=== PATIENT | male | born 1955 | race Caucasian/White ===

== ENCOUNTER 2020-11-14 12:22 | Emergency (ER) | payer MEDICARE ==
[2020-11-14 12:33] VITALS: TEMP 98.3
--- NOTE | 2020-11-14 13:14 | ED ---
Extremity Problem HPI - General Chief complaint: Extremity Problem,Nontraumatic Stated complaint: lt leg blood clot Time Seen by Provider: 11/14/20 12:35 Source: patient Mode of arrival: wheelchair Limitations: no limitations - History of Present Illness Initial comments: Patient is a 65-year-old male with history of venous insufficiency, presenting to the emergency Department with complaints of increasing left lower leg pain for the past 2 days. Patient states he was diagnosed with a superficial blood clot in his left upper leg 2 weeks ago. He states he has been doing well with that, doing warm compresses. Patient states over this past weekend he traveled by vehicle up to [place] and ever since then he's been having increase in his left lower leg pain. He states he is having a hard time standing in the left leg secondary to the pain. He denies any fever or chills. Denies any cough, shortness of breath, no chest pain. He has no further complaints at this time. - Related Data Allergies Allergy/AdvReac Type Severity Reaction Status Date / Time No Known Allergies Allergy Verified 11/14/20 12:33 Review of Systems ROS Statement: Those systems with pertinent positive or pertinent negative responses have been documented in the HPI. ROS Other: All systems not noted in ROS Statement are negative. Past Medical History Past Medical History: Hypertension, Thyroid Disorder Additional Past Medical History / Comment(s): [facility] History of Any Multi-Drug Resistant Organisms: None Reported Past Surgical History: Joint Replacement, Orthopedic Surgery Additional Past Surgical History / Comment(s): carpal tunnel, vein stripping,lt shoulder,,rt knee x 4 Past Psychological History: ADD/ADHD, Depression Smoking Status: Former smoker Past Alcohol Use History: None Reported Past Drug Use History: Marijuana General Exam - General Exam Comments Initial Comments: GENERAL: Patient is well-developed and well-nourished. Patient is nontoxic and in no acute distress. HEAD: Atraumatic, normocephalic. EYES: Pupils equal round and reactive to light, extraocular movements intact, sclera anicteric, conjunctiva are normal. Eyelids were unremarkable. ENT: TMs normal, nares patent, oropharynx clear without exudates. Moist mucous membranes. NECK: Normal range of motion, supple without lymphadenopathy or JVD. LUNGS: Unlabored respirations. Breath sounds clear to auscultation bilaterally and equal. No wheezes rales or rhonchi. HEART: Regular rate and rhythm without murmurs, rubs or gallops. ABDOMEN: Soft, nontender, normoactive bowel sounds. No guarding, no rebound. No masses appreciated. : Deferred MUSCULOSKELETAL: Chronic venous insufficiency, edema bilateral lower legs. Neurovascular intact. Normal extremities with adequate strength and normal range of motion. No clubbing or cyanosis. NEUROLOGICAL: Patient is alert and oriented x 3. Motor and sensory are also intact. Cranial nerves II through XII grossly intact. Symmetrical smile. Normal speech, normal gait. PSYCH: Normal mood, normal affect. SKIN: Warm, Dry, normal turgor. Patient has chronic bilateral lower leg venous insufficiency, he does have a painful area consistent with a superficial thrombophlebitis on the left lateral thigh. Limitations: no limitations Course Vital Signs 11/14/20 12:24 Temperature 98.3 F Pulse Rate 66 Respiratory 20 Rate Blood Pressure 199/96 O2 Sat by Pulse 95 Oximetry Medical Decision Making - Medical Decision Making Patient is 65-year-old male with increase in left lower leg pain after driving to [place]. He is worried for DVT. He does have a recently diagnosed superficial thrombophlebitis on the left upper leg. Ultrasound today reveals no evidence of acute DVT, read demonstrates the same superficial thrombophlebitis on the left upper thigh. Patient does have an appointment with his doctor on Saturday. I did recommend continuing with hot packs. Patient is stable for discharge. Patient is in agreement with this plan of care. Return parameters were discussed with the patient and they verbalized understanding. Case discussed with Dr. Ibarra. Disposition Clinical Impression: Superficial thrombophlebitis of left leg Disposition: HOME SELF-CARE Condition: Stable Instructions (If sedation given, give patient instructions): Superficial Thrombophlebitis (ED) Additional Instructions: Please return to the Emergency Department if symptoms worsen or any other concerns. Continue with hot packs to the area as discussed. Tylenol or Motrin for pain. Follow-up with your regular doctor. Is patient prescribed a controlled substance at d/c from ED?: No Referrals: Óscar Vidal MD [Primary Care Provider] - 1-2 days Henry Avila MD [STAFF PHYSICIAN] - 1-2 days
--- NOTE | 2020-11-14 13:45 | US ---
EXAMINATION TYPE: US venous doppler duplex LE LT DATE OF EXAM: 11/14/2020 1:13 PM COMPARISON: NONE CLINICAL HISTORY: 65-year-old male left leg pain increased after road trip. Pt states left lateral th igh pain, pt states recently told he has superficial thrombus SIDE PERFORMED: Left TECHNIQUE: The lower extremity deep venous system is examined utilizing real time linear array sonog verito with graded compression, doppler sonography and color-flow sonography. FINDINGS: VESSELS IMAGED: Common Femoral Vein Deep Femoral Vein Greater Saphenous Vein * Femoral Vein Popliteal Vein Small Saphenous Vein * Proximal Calf Veins (* superficial vessels) Left Leg: Lower femoral vein not visualized due to edema. Otherwise, no evidence for DVT. LEFT later al thigh in area of patient's pain shows superficial thrombophlebitis IMPRESSION: 1. Limited visualization of the lower femoral vein due to edema. Otherwise, no DVT visualized in the left lower extremity imaged from the groin to the upper calf. 2. Exam positive for SVT/superficial thrombophlebitis along the left lateral thigh area of patient's pain.
[2020-11-14] MEDS ORDERED: traMADol 50 MG STARTER PACK 3 TAB BTL PO STA (13:55)
[2020-11-14 14:08] VITALS: BP 170/83; PULSE 88; RESP 16
== END 2020-11-14 14:03 | disposition home or self-care (01) ==
LOC: EC 12:22
DX: I80.02 Phlebitis and thrombophlebitis of superficial vessels of left lower extremity (principal); I87.2 Venous insufficiency (chronic) (peripheral); Z87.891 Personal history of nicotine dependence
CPT/HCPCS: 99283

== ENCOUNTER → 2023-05-28 | Day surgery (SDC) | payer MEDICARE ==
[2023-05-23 11:26] VITALS: BMI 47.9
[~2023-05-28] MED LIST: ALPRAZolam 0.25 MG TAB PO PRN; ALPRAZolam 0.5 MG TAB PO PRN; ASPIRIN 325 MG TAB PO STA; ATORVASTATIN 80 MG TAB PO STA; HEPARIN SODIUM 1,000 UN/ML (10ML VL) IVP ONE; HEPARIN SODIUM 1,000 UN/ML (10ML VL) ONE; HEPARIN SODIUM,PORCINE (1 ML) 2,500 UNIT in SODIUM CHLORIDE 0.9% 250 ML IRRIGATION PRN; HEPARIN SODIUM,PORCINE 10,000 UNIT in SODIUM CHLORIDE 0.9% 1,000 ML IRRIGATION PRN; IOPAMIDOL-370 100ML BTL INJ ONE; LIDOCAINE 1% INJ 10MG/ML (30 ML VIAL-PF) SQ ONE; MIDAZOLAM 2 MG/2 ML VIAL IVP ONE; NITROGLYCERIN SL TABS 0.4 MG TAB SUBLINGUAL PRN; RX INFO: IV CONTRAST WAS GIVEN 1 EACH MISC MISCELLANE PRN; SODIUM CHLORIDE 0.9% 1,000 ML IV SCH; SODIUM CHLORIDE 0.9% 1,000 ML in EMPTY BAG 1 BAG IV SCH; VERAPAMIL 2.5 MG/ML 2 ML AMP ONE; amLODIPine 10 MG TAB PO STA; fentaNYL (PF) 50 MCG/ML 2 ML AMP IVP ONE; fentaNYL (PF) 50 MCG/ML 2 ML AMP ONE; hydrALAZINE HCL 20 MG/ML 1 ML VIAL IVP ONE; hydrALAZINE HCL 20 MG/ML 1 ML VIAL ONE
[2023-05-28 07:35] VITALS: RESP 18; TEMP 97.3
--- NOTE | 2023-05-28 08:01 | P.ANPRN ---
Procedure Note - Anesthesia - Invasive Line Right Arterial Line Time Out Performed: Yes Date of Procedure: 05/28/23 Time of Procedure: 06:55 Location of Patient: PreOp Preparation: Sterile Prep, Sterile Dressing Arterial Line Location: Radial Ultrasound Used: No Image Stored and Saved: No Narrative: Central line placement per sterile protocol utilized.
--- NOTE | 2023-05-28 08:02 | P.ANPRN ---
Procedure Note - Anesthesia - Invasive Line Right Central Line Time Out Performed: Yes Date of Procedure: 05/28/23 Time of Procedure: 07:18 Location of Patient: PreOp Preparation: Sterile Prep, Sterile Dressing Central Line Location: Internal Jugular Ultrasound Used: No Purpose - Visualization and Identification of Vasculature: No Image Stored and Saved: No Narrative: Central line placement per sterile protocol utilized.
[2023-05-28 13:46] VITALS: BP 125/63; PULSE 56
--- NOTE | 2023-05-29 15:29 | CC ---
CARDIAC CATHETERIZATION REPORT INDICATION: Abnormal stress test. PROCEDURE NOTE: After obtaining informed consent, left heart catheterization and coronary angiogram were performed via the right radial artery using standard Lesli catheters. The patient tolerated the procedure well without any obvious immediate complications. The patient had a very tortuous subclavian and we had to use a Glidewire to pass the catheters and wires into the ascending aorta, where they were exchanged. We went through multiple catheter exchanges including a 3.5, 4, 4.5, and ultimately got selective images with 3.5 left Lesli. The patient received verapamil per protocol and heparin per protocol. Total sedation time was 37 minutes. Right radial artery access was obtained using Seldinger technique, and a 6-Romanian sheath was placed, through which the cardiac catheterization was performed. FINDINGS: 1. HEMODYNAMICS: Left ventricular end-diastolic pressure is 24 mm. There is no significant gradient across the aortic valve. 2. LEFT VENTRICULOGRAM: Left ventriculogram is not performed. 3. ANGIOGRAPHIC DATA: a.Right coronary artery: Right coronary artery is a large dominant vessel and is free of significant stenosis. b.Left main coronary artery is a normal-sized vessel and is free of disease. This divides into left anterior descending coronary artery and circumflex coronary artery. c.LAD and its branches, circumflex coronary artery and its branches are free of significant stenosis. CONCLUSIONS: 1. Right dominant circulation. 2. No evidence of significant obstructive CAD in LAD. PLAN: The patient's stress test is a false-positive stress test. We will control his blood pressure optimally and let him go through the back surgery that he was planning on. MMODL / TOMASZN: [id number] /
--- NOTE | 2023-05-29 15:30 | LTR ---
Dear Misti: I performed cardiac catheterization on Chance Menendez. A detailed catheterization note is enclosed for your records. In brief, the cardiac catheterization did not find significant obstructive CAD involving LAD. The plan at this stage is to treat him with optimal medical therapy, blood pressure control, and let him go to surgery for his back. The patient has aortic regurgitation, which I am going to follow down. Thank you for giving us the privilege to participate in the care of this pleasant gentleman. AYESHA / DIOR: [id number] /
== END ==
LOC: CATHCVL 06:45
PROVIDERS: ATTEND Internal Medicine Cardiovascular Disease
DX: R94.39 Abnormal result of other cardiovascular function study (principal); E66.01 Morbid (severe) obesity due to excess calories; E78.5 Hyperlipidemia, unspecified; E07.9 Disorder of thyroid, unspecified; I10 Essential (primary) hypertension; Z79.890 Hormone replacement therapy; Z79.82 Long term (current) use of aspirin; Z79.899 Other long term (current) drug therapy; Z68.43 Body mass index [BMI] 50.0-59.9, adult
CPT/HCPCS: 93458; 36556; J2250; J0360; J2001; J3010; J1644; Q9967

== ENCOUNTER → 2023-11-27 | Outpatient (CLI) | payer MEDICARE ==
--- NOTE | 2023-11-28 09:39 | US ---
EXAMINATION TYPE: US abdomen complete DATE OF EXAM: 11/27/2023 COMPARISON: NONE CLINICAL INDICATION: Male, 68 years old with history of R94.5 ABNORMAL RESULTS OF LIVER FUNCTION STUD IES; Abnormal labs. TECHNIQUE: Multiple sonographic images of the abdomen are obtained. FINDINGS: EXAM MEASUREMENTS: Liver Length: 18.6 cm Gallbladder Wall: 0.2 cm CBD: 0.6 cm Spleen: 13.8 cm Right Kidney: 11.7 x 5.0 x 5.4 cm Left Kidney: 12.3 x 5.3 x 6.2 cm ICE CREAM MIXER NOTES: Very limited due to overlying bowel gas Pancreas: Obscured by bowel gas Liver: Very limited exam, enlarged in size Gallbladder: Suboptimal visualization, no stones or wall thickening seen Evidence for sonographic Dillon's sign: neg CBD: wnl Spleen: Enlarged in size Right Kidney: No hydronephrosis or masses seen, suboptimal visualization Left Kidney: lower cortical anechoic lesion = 1.0 x 0.7 x 0.8 cm, compatible small cortical renal cy st. Upper IVC: wnl Abd Aorta: Proximal and mid portion obscured by overlying bowel gas, limited visualization due to pa tient body habitus IMPRESSION: 1. Hepatomegaly with moderate fatty liver. 2. Mild Splenomegaly. 3. Small cortical left renal cyst
== END | disposition home or self-care (01) ==
LOC: RADUSWWP 08:08
PROVIDERS: ATTEND Family Medicine
DX: R94.5 Abnormal results of liver function studies (principal); R16.0 Hepatomegaly, not elsewhere classified; K76.0 Fatty (change of) liver, not elsewhere classified; R16.1 Splenomegaly, not elsewhere classified; N28.1 Cyst of kidney, acquired
CPT/HCPCS: 76700

== ENCOUNTER 2025-01-18 14:24 | Emergency (ER) | payer MEDICARE ==
[2025-01-18 14:30] VITALS: RESP 18
[2025-01-18 15:09] LABS: Basophils # (A) 0.04 10*3/uL (0.00-0.10); Basophils % (A) 0.7 %; Eosinophils # (A) 0.29 10*3/uL (0.04-0.35); Eosinophils % (A) 5.4 %; HCT 34.7 % (39.6-50.0); HGB 11.5 g/dL (13.0-17.0); Lymphocytes # (A) 1.56 10*3/uL (0.90-5.00); Lymphocytes % (A) 28.9 %; MCH 30.6 pg (27.0-32.0); MCHC 33.1 g/dL (32.0-37.0); MCV 92.3 fL (80.0-97.0); Monocytes # (A) 0.56 10*3/uL (0.20-1.00); Monocytes % (A) 10.4 %; Neutrophils # (A) 2.93 10*3/uL (1.80-7.70); Neutrophils % (A) 54.4 %; Platelet Count 184 10*3/uL (140-440); RBC 3.76 10*6/uL (4.40-5.60); WBC 5.39 10*3/uL (4.50-10.00)
[2025-01-18] MEDS: SODIUM CHLORIDE 0.9% 1,000 ML IV STA (15:09)
[2025-01-18 15:23] LABS: Partial Thromboplastin Time 24.4 sec (22.0-30.0); Prothrombin Time 11.3 sec (10.0-12.5)
[2025-01-18 15:28] LABS: ALT 14 U/L (4-49); AST 22 U/L (17-59); African American GFR (CKD) >90 (>60 ml/min/1.73 sqM); Albumin 4.1 g/dL (3.5-5.0); Alkaline Phosphatase 79 U/L (38-126); Amylase 48 U/L (30-110); Anion Gap 10 mmol/L; Blood Urea Nitrogen 14 mg/dL (9-20); Calcium 9.1 mg/dL (8.4-10.2); Carbon Dioxide 28 mmol/L (22-30); Chloride 102 mmol/L (98-107); Glucose 95 mg/dL (74-99); Lipase 59 U/L (23-300); Non-African American GFR(CKD) >90 (>60 ml/min/1.73 sqM); Potassium 3.6 mmol/L (3.5-5.1); Sodium 140 mmol/L (137-145); Total Bilirubin 0.7 mg/dL (0.2-1.3); Total Protein 7.2 g/dL (6.3-8.2)
--- NOTE | 2025-01-18 17:12 | CT ---
EXAMINATION TYPE: CT abdomen pelvis w con DATE OF EXAM: 01/18/2025 4:42 PM COMPARISON: 11/19/2023 CLINICAL INDICATION: Male, 69 years old with history of abdominal pain. distention. diarrhea; abdomin al pain, distention TECHNIQUE: Axial CT abdomen pelvis w con;Sagittal and coronal reformats were created on a separate w orkstation. Contrast used:100 ml mL of Isovue 300 with IV Contrast, (none if empty) Oral contrast used: without Oral Contrast (none if empty) CT DLP: 2346.9 mGycm, Automated exposure control for dose reduction was used. FINDINGS: LOWER CHEST: Unremarkable ABDOMEN LIVER: Unremarkable GALLBLADDER AND BILE DUCTS: Unremarkable. PANCREAS: Unremarkable. SPLEEN: Unremarkable. ADRENAL GLANDS: Unremarkable. KIDNEYS AND URETERS: No evidence of hydronephrosis or obstructing renal calculus. The ureters are unr emarkable. PELVIS BLADDER: No evidence for wall thickening or mass given limitations of exam. REPRODUCTIVE: Prostate is enlarged in size measuring 4.9 cm in transverse dimension. ABDOMEN & PELVIS STOMACH AND BOWEL: No evidence of bowel obstruction. Gaseous distention of the transverse colon. No o bstructing mass visualized or stricture. PERITONEUM/RETROPERITONEUM: No evidence of pneumoperitoneum or free fluid. VASCULATURE: No evidence of aortic aneurysm. Left retroaortic renal vein. Tortuous vessels along the anterior left thigh. MUSCULOSKELETAL: No acute osseous abnormalities, right sacroiliac joint fixation screw appears intact . Postsurgical changes L4-L5 with laminectomy. Assessment subsequently removed. Mild degeneration changes throughout the spine. LYMPH NODES: No gross evidence for lymphadenopathy. SOFT TISSUE/ABDOMINAL WALL: Unremarkable IMPRESSION: 1. Gaseous dilation of the mid transverse colon without evidence for obstructing mass. Consider ther apeutic Gastrografin small bowel follow-through. 2. Prostatomegaly, correlate with serum PSA. 3. Postsurgical changes spine with laminectomy change. Right sacroiliac joint fixation appears intac t. [facility], , 01/18/2025 5:10 PM
[2025-01-18 18:09] LABS: Appearance,Urine Clear (Clear); Bilirubin,Urine Negative (Negative); Blood,Urine Trace (Negative); Color,Urine Light Yellow; Glucose,Urine (UA) Negative (Negative); Ketones,Urine 1+ (Negative); Leukocyte Esterase,Urine Trace (Negative); Mucus,Urine Rare /hpf; Nitrite,Urine Negative (Negative); Protein,Urine Trace (Negative); RBC,Urine 32 /hpf (0-5); Specific Gravity,Urine 1.034 (1.001-1.035); Urobilinogen,Urine <2.0 mg/dL (<2.0); WBC,Urine 7 /hpf (0-5)
[2025-01-18 20:55] VITALS: BP 122/97; PULSE 84; TEMP 97.9
--- NOTE | 2025-01-18 20:59 | ED ---
General Adult HPI - General Chief complaint: Nausea/Vomiting/Diarrhea Stated complaint: Diarrhea Time Seen by Provider: 01/18/25 14:50 Source: patient, EMS, RN notes reviewed, old records reviewed Mode of arrival: EMS Limitations: no limitations - History of Present Illness Initial comments: Patient is a 69-year-old male who presents emergency department complaining of 4 months of diarrhea and abdominal distention and pain. No change from baseline. Has been dealing with this since August when he was placed on vancomycin for a leg infection that was subsequently amputated. Was at a nursing facility and then finally discharged to home. Home health listen to his abdomen was concern for possibly a blockage. No acute changes. Has been tested multiple times for C. difficile that have all been negative. He has been having nonbloody brown diarrhea for 4 months that is unchanged from baseline. Denies nausea or vomiting. Denies any significant abdominal pain, just the continued distention that has once again been unchanged since early August. Denies any chest pain or shortness of breath. Presents for further evaluation at this time. - Related Data Home Medications Medication Instructions Recorded Confirmed Aspirin EC [Ecotrin Low Dose] 81 mg PO DAILY 11/14/20 01/18/25 Multivit-Min/FA/Lycopen/Lutein 1 tab PO DAILY 11/14/20 01/18/25 [Centrum Silver Tablet] Pravastatin Sodium [Pravachol] 80 mg PO HS 11/14/20 01/18/25 Sertraline [Zoloft] 100 mg PO DAILY 11/14/20 01/18/25 lisinopriL 40 mg PO DAILY 05/23/23 01/18/25 Acetaminophen [Tylenol] 650 mg PO Q4H PRN 01/18/25 01/18/25 Ascorbic Acid [Vitamin C] 500 mg PO DAILY 01/18/25 01/18/25 Ferrous Sulfate [Feosol] 325 mg PO DAILY 01/18/25 01/18/25 Folic Acid 1 mg PO DAILY 01/18/25 01/18/25 Gabapentin 600 mg PO TID 01/18/25 01/18/25 Levothyroxine Sodium [Synthroid] 25 mcg PO DAILY 01/18/25 01/18/25 Levothyroxine Sodium [Synthroid] 200 mcg PO DAILY 01/18/25 01/18/25 Loperamide [Imodium] 2 mg PO Q4H PRN 01/18/25 01/18/25 amLODIPine [Norvasc] 10 mg PO HS 01/18/25 01/18/25 carvediloL [Coreg] 6.25 mg PO BID 01/18/25 01/18/25 hydrALAZINE HCL [Apresoline] 50 mg PO BID 01/18/25 01/18/25 methocarbamoL [Robaxin] 1,000 mg PO Q8H PRN 01/18/25 01/18/25 oxyCODONE HCL [oxyCODONE HCL (IR)] 10 mg PO Q4H PRN 01/18/25 01/18/25 Allergies Allergy/AdvReac Type Severity Reaction Status Date / Time shellfish derived [Shellfish] Allergy Vomiting Verified 01/18/25 18:25 Review of Systems ROS Statement: Those systems with pertinent positive or pertinent negative responses have been documented in the HPI. Review of Systems: CONST: Denies fever EYES: Denies blurry vision ENT: Denies nasal congestion C/V: Denies Chest pain RESP: Denies shortness of breath GI: Patient has chronic abdominal distention, diarrhea : Denies dysuria SKIN: Denies rash. MSK: Denies joint pain. NEURO: Denies headache ROS Other: All systems not noted in ROS Statement are negative. 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 Lymphedema. Uses CPAP. On Minocin for total right knee/infections. Osteoporosis, hypo thyroid, anemia, hx DVTs in legs. Some recent hearing loss. History of Any Multi-Drug Resistant Organisms: None Reported Past Surgical History: Appendectomy, Back Surgery, Joint Replacement, Orthopedic Surgery, Tonsillectomy Additional Past Surgical History / Comment(s): Bilateral carpal tunnel surgeries, bilateral shoulder surgeries, rods in back, sacral fusion, left index finger surgery, right total knee replacement X4, varicose vein "gluing". Right BKA Past Anesthesia/Blood Transfusion Reactions: No Reported Reaction Additional Past Anesthesia/Blood Transfusion Reaction / Comment(s): Pt has never received blood. Past Psychological History: ADD/ADHD, Depression Smoking Status: Never smoker Past Alcohol Use History: None Reported Past Drug Use History: Marijuana - Past Family History Mother Family Medical History: No Reported History General Exam - General Exam Comments Initial Comments: General: Appears in no acute distress. HEAD: Normal with no signs of head trauma. EYES: PERRLA, EOMI, conjunctiva normal, no discharge. ENT: Hearing grossly intact, normal oropharynx. RESPIRATORY: Clear breath sounds bilaterally. No wheezes, rales, or rhonchi. C/V: Regular rate and rhythm. S1 and S2 auscultated, no edema, peripheral pulses 2+ and intact throughout ABD: Abdomen is soft, nontender. Distended in the upper abdomen which patient states is chronic for him. EXT: Right AKA. Stump appears to be healing well. SKIN: No rashes or lesions observed on exposed skin. NEURO: Alert and oriented x 4. No focal deficits. Limitations: no limitations Course Vital Signs 01/18/25 01/18/25 01/18/25 14:27 18:29 20:53 Temperature 65 F L 97.9 F Pulse Rate 66 64 84 Respiratory 18 18 18 Rate Blood Pressure 155/78 184/88 122/97 O2 Sat by Pulse 98 96 95 Oximetry Medical Decision Making - Medical Decision Making Was pt. sent in by a medical professional or institution (JORDYN Miranda, ACCOUNT MANAGER TRAINEE, urgent care, hospital, or detention...) When possible be specific @ -No Did you speak to anyone other than the patient for history (EMS, parent, family, police, friend...)? What history was obtained from this source @ -Patient's is at bedside and provides help with past medical history. Did you review nursing and triage notes (agree or disagree)? Why? @ -I reviewed and agree with nursing and triage notes Were old charts reviewed (outside hosp., previous admission, EMS record, old EKG, old radiological studies, urgent care reports/EKG's, detention records)? Report findings @ -No old charts were reviewed Differential Diagnosis (chest pain, altered mental status, abdominal pain women, abdominal pain men, vaginal bleeding, weakness, fever, dyspnea, syncope, headache, dizziness, GI bleed, back pain, seizure, CVA, palpatations, mental health, musculoskeletal)? @ -Differential Abdominal Pain Men: Appendicitis, cholecystitis, diverticulosis, ischemic bowel, pancreatitis, hepatitis, UTI, gastroenteritis, AAA, incarcerated hernia, bowel obstruction, constipation, inflammatory bowel, hepatitis, peptic ulcer disease, splenic infarction, perforated viscus, testicular torsion, this is not meant to be an all-inclusive list EKG interpreted by me (3pts min.). @ -None done X-rays interpreted by me (1pt min.). @ -Gastrografin small bowel follow-through abdominal series x-rays interpreted by Dr. Wong over the phone self and showed satisfactory passage of the contrast material through the bowels. Overall normal exam, other than the previous finding of the transverse colonic air. CT interpreted by me (1pt min.). @ -CT abdomen and pelvis reveals gaseous distention of the transverse colon. No obvious evidence of obstructing mass. Recommend Gastrografin small bowel follow-through study. U/S interpreted by me (1pt. min.). @ -None done What testing was considered but not performed or refused? (CT, X-rays, U/S, labs)? Why? @ -None What meds were considered but not given or refused? Why? @ -None Did you discuss the management of the patient with other professionals (professionals i.e. , PA, ACCOUNT MANAGER TRAINEE, lab, RT, psych nurse, social services designee, product design manager, teacher, customs officer, case manager specialist)? Give summary @ -Discussed the case with on-call surgeon Dr. Fletcher who was in agreement with plan for the Gastrografin study. Discussed with the radiology on-call, Dr. Wong who interpreted the CT and was also in agreement with this plan and he will interpret the results of the Gastrografin follow-through study. He did communicate to me the results of this and stated the gaseous distention of the transverse colon is likely positional as patient is chronically of laying flat on his back. Recommended changing position. Was smoking cessation discussed for >3mins.? @ -No Was critical care preformed (if so, how long)? @ -No Were there social determinants of health that impacted care today? How? (Homelessness, low income, unemployed, alcoholism, drug addiction, transportation, low edu. Level, literacy, decrease access to med. care, alf, rehab)? @ -No Was there de-escalation of care discussed even if they declined (Discuss DNR or withdrawal of care, Hospice)? DNR status @ -No What co-morbidities impacted this encounter? (DM, HTN, Smoking, COPD, CAD, Cancer, CVA, ARF, Chemo, Hep., AIDS, mental health diagnosis, sleep apnea, morbid obesity)? @ -Chronic gaseous distention of the abdomen. Was patient admitted / discharged? Hospital course, mention meds given and route, prescriptions, significant lab abnormalities, going to OR and other pertinent info. @ -Patient presents for evaluation prior possible bowel obstruction. Has no acute symptoms but has chronic 4 months of abdominal distention that is unchanged from baseline as well as nonbloody diarrhea that is unchanged from baseline. Sent by his home care nurse. Symptoms seem chronic and I did discuss this with the patient as well as his and they were in agreement. Unlikely to find acute etiology but we will obtain abdominal labs as well as CT. They were in agreement this plan. Patient is symptomatic treated with IV fluids. Is not in any pain. Laboratory studies returned unremarkable. CT abdomen pelvis reveals gaseous distention of the transverse colon without any obvious blockage or ileus. Radiologist, Dr. Wong recommends a small bowel follow-through with Gastrografin. I discussed the case with the on-call surgeon, Dr. Fletcher who was also in agreement with this plan. This is to rule out any other obvious obstructive process and to ensure that the contrast does pass through the air- filled bowel. It could improve some of his symptoms and air distention as well. Air distention could also be secondary to chronic positioning as he is always flat on his back. Patient was in agreement this plan. Frequent reevaluations occurred. Patient was small bowel follow-through was unremarkable, as patient was having adequate passage of the contrast material through his bowels. I updated the patient. He is actively having a bowel movement which is chronic for him. C. difficile was ordered however patient has been tested numerous times for C. difficile and has been negative. He expressed understanding he was to be discharged home back to his home at this time. He will be aided with ambulance transfer for home. Recommended follow-up with gastroenterology as well as surgery. They did request follow-up with Dr. Carrion. I instructed the patient to follow up with their PCP in the next 1-3 days. I explained that the patient should return to the emergency department if they experience any worsening symptoms. Strict return precautions were discussed with the patient. The patient expressed understanding of these instructions. I answered all questions that the patient had. The patient was discharged home in good condition with their prescriptions and follow up information. Undiagnosed new problem with uncertain prognosis? @ -No Drug Therapy requiring intensive monitoring for toxicity (Heparin, Nitro, Insulin, Cardizem)? @ -No Were any procedures done? @ -No Diagnosis/symptom? @ -Diarrhea Acute, or Chronic, or Acute on Chronic? @ -Chronic Uncomplicated (without systemic symptoms) or Complicated (systemic symptoms)? @ -Uncomplicated Side effects of treatment? @ -No Exacerbation, Progression, or Severe Exacerbation? @ -No Poses a threat to life or bodily function? How? (Chest pain, [place], [place], pneumonia, PE, COPD, DKA, ARF, appy, cholecystitis, CVA, Diverticulitis, Homicidal, Suicidal, threat to staff... and all critical care pts) @ -Unlikely at this time - Lab Data Result diagrams: 01/18/25 14:56 01/18/25 14:56 Lab Results 01/18/25 01/18/25 01/18/25 Range/Units 14:56 14:56 14:56 WBC 5.39 (4.50-10.00) 10*3/uL RBC 3.76 L (4.40-5.60) 10*6/uL Hgb 11.5 L (13.0-17.0) g/dL Hct 34.7 L (39.6-50.0) % MCV 92.3 (80.0-97.0) fL MCH 30.6 (27.0-32.0) pg MCHC 33.1 (32.0-37.0) g/dL Plt Count 184 (140-440) 10*3/uL MPV 9.0 L (9.5-12.2) fL Immature Gran % (Auto) 0.2 % Neutrophils % 54.4 % Lymphocytes % 28.9 % Monocytes % 10.4 % Eosinophils % 5.4 % Basophils % 0.7 % Immature Gran # 0.01 (0.00-0.04) 10*3/uL Neutrophils # 2.93 (1.80-7.70) 10*3/uL Lymphocytes # 1.56 (0.90-5.00) 10*3/uL Monocytes # 0.56 (0.20-1.00) 10*3/uL Eosinophils # 0.29 (0.04-0.35) 10*3/uL Basophils # 0.04 (0.00-0.10) 10*3/uL PT 11.3 (10.0-12.5) sec INR 1.0 (<1.2) APTT 24.4 (22.0-30.0) sec Sodium 140 (137-145) mmol/L Potassium 3.6 (3.5-5.1) mmol/L Chloride 102 (98-107) mmol/L Carbon Dioxide 28 (22-30) mmol/L Anion Gap 10 mmol/L BUN 14 (9-20) mg/dL Creatinine 0.53 L (0.66-1.25) mg/dL Est GFR (CKD-EPI)AfAm >90 (>60 ml/min/1.73 sqM) Est GFR (CKD-EPI)NonAf >90 (>60 ml/min/1.73 sqM) Glucose 95 (74-99) mg/dL Plasma Lactic Acid Kam (0.7-2.0) mmol/L Calcium 9.1 (8.4-10.2) mg/dL Total Bilirubin 0.7 (0.2-1.3) mg/dL AST 22 (17-59) U/L ALT 14 (4-49) U/L Alkaline Phosphatase 79 (38-126) U/L Total Protein 7.2 (6.3-8.2) g/dL Albumin 4.1 (3.5-5.0) g/dL Amylase 48 (30-110) U/L Lipase 59 (23-300) U/L Urine Color Urine Appearance (Clear) Urine pH (5.0-8.0) Ur Specific [place] (1.001-1.035) Urine Protein (Negative) Urine Glucose (UA) (Negative) Urine Ketones (Negative) Urine Blood (Negative) Urine Nitrite (Negative) Urine Bilirubin (Negative) Urine Urobilinogen (<2.0) mg/dL Ur Leukocyte Esterase (Negative) Urine RBC (0-5) /hpf Urine WBC (0-5) /hpf Urine Mucus (None) /hpf 01/18/25 01/18/25 Range/Units 14:56 18:00 WBC (4.50-10.00) 10*3/uL RBC (4.40-5.60) 10*6/uL Hgb (13.0-17.0) g/dL Hct (39.6-50.0) % MCV (80.0-97.0) fL MCH (27.0-32.0) pg MCHC (32.0-37.0) g/dL Plt Count (140-440) 10*3/uL MPV (9.5-12.2) fL Immature Gran % (Auto) % Neutrophils % % Lymphocytes % % Monocytes % % Eosinophils % % Basophils % % Immature Gran # (0.00-0.04) 10*3/uL Neutrophils # (1.80-7.70) 10*3/uL Lymphocytes # (0.90-5.00) 10*3/uL Monocytes # (0.20-1.00) 10*3/uL Eosinophils # (0.04-0.35) 10*3/uL Basophils # (0.00-0.10) 10*3/uL PT (10.0-12.5) sec INR (<1.2) APTT (22.0-30.0) sec Sodium (137-145) mmol/L Potassium (3.5-5.1) mmol/L Chloride (98-107) mmol/L Carbon Dioxide (22-30) mmol/L Anion Gap mmol/L BUN (9-20) mg/dL Creatinine (0.66-1.25) mg/dL Est GFR (CKD-EPI)AfAm (>60 ml/min/1.73 sqM) Est GFR (CKD-EPI)NonAf (>60 ml/min/1.73 sqM) Glucose (74-99) mg/dL Plasma Lactic Acid Kam 0.9 (0.7-2.0) mmol/L Calcium (8.4-10.2) mg/dL Total Bilirubin (0.2-1.3) mg/dL AST (17-59) U/L ALT (4-49) U/L Alkaline Phosphatase (38-126) U/L Total Protein (6.3-8.2) g/dL Albumin (3.5-5.0) g/dL Amylase (30-110) U/L Lipase (23-300) U/L Urine Color Light Yellow Urine Appearance Clear (Clear) Urine pH 7.0 (5.0-8.0) Ur Specific [place] 1.034 (1.001-1.035) Urine Protein Trace H (Negative) Urine Glucose (UA) Negative (Negative) Urine Ketones 1+ H (Negative) Urine Blood Trace H (Negative) Urine Nitrite Negative (Negative) Urine Bilirubin Negative (Negative) Urine Urobilinogen <2.0 (<2.0) mg/dL Ur Leukocyte Esterase Trace H (Negative) Urine RBC 32 H (0-5) /hpf Urine WBC 7 H (0-5) /hpf Urine Mucus Rare H (None) /hpf Disposition Clinical Impression: Diarrhea Disposition: HOME SELF-CARE Condition: Good Instructions (If sedation given, give patient instructions): Chronic Diarrhea (ED) Additional Instructions: Follow-up with gastroenterology and surgery regarding the air distention in the transverse colon. Imaging completed today shows that you not have a blockage, and your symptoms have been ongoing for 4 months as we discussed. No acute changes. Return to the ER for any worsening symptoms.. Is patient prescribed a controlled substance at d/c from ED?: No Referrals: Misti Hernandez DO [Primary Care Provider] - 1-2 days Jessica Kellogg MD [STAFF PHYSICIAN] - 1-2 days Edu Carrion DO [Doctor of Osteopathic Medicine] - 1-2 days Time of Disposition: 20:58
--- NOTE | 2025-01-18 21:12 | FL ---
EXAMINATION TYPE: FL small bowel follow through DATE OF EXAM: 01/18/2025 8:51 PM COMPARISON: CT abdomen pelvis most recent from same day CLINICAL INDICATION:Male, 69 years old with history of abdominal distention/pain. History of immobili ty. TECHNIQUE: The procedure was explained and patient history elicited. All patient questions were ans wered prior to start of procedure. A sumac tanner radiograph of the abdomen was also reviewed. The patient was asked to ingest liquid Gastrografin and incremental frontal abdominal radiographs were then taken until contrast was visualized in the cecum. FINDINGS: The sumac tanner abdominal radiograph demonstrates dilated loops of colon in the transverse colon similar to CT same day. Otherwise the remainder of the bowel has a normal bowel gas pattern without dilated loo ps of small or large bowel. There is no evidence of organomegaly or pneumoperitoneum. No abnormal daniel cifications. The visualized osseous structures are intact. Excreted IV contrast is seen within the ur inary bladder and renal collecting system. Contrast is seen extending from the duodenojejunal junction into the cecum after 1 hour, which is wit hin the expected time period. The small bowel follows normal distribution and contour without any ev idence of extraluminal or intraluminal irregularity. There is no displacement of bowel loops or extr aluminal extravasation of contrast material. Small bowel mucosal folds are felt to be within normal l imits. There remains gaseous distention of the transverse colon likely due to patient's history of im mobility. IMPRESSION: 1. Normal detailed small bowel examination. 2. Gaseous distention of the transverse colon which is positioned anteriorly in the abdomen. Patient should consider changing positions often including right lateral decubitus and prone. [facility], , 01/18/2025 9:10 PM
== END 2025-01-18 22:40 | disposition home or self-care (01) ==
LOC: EC 14:24
DX: R19.7 Diarrhea, unspecified (principal); R14.0 Abdominal distension (gaseous); Z91.013 Allergy to seafood
CPT/HCPCS: 36415; 80053; 82150; 83605; 83690; 85025; 85610; 85730; 81001; 74250; 74177; 99284; 96360; 96361; Q9967; Q9958